=== PATIENT | female | born 1960 | race American Indian/Alaskan Native ===

== ENCOUNTER 2018-12-01 11:35 | Observation (INO) | payer MEDICARE ==
[2018-12-01] MEDS ORDERED: Iohexol 240 (50 ml) PO ONE (12:35)
--- NOTE | 2018-12-01 12:37 | ED PDOC ---
HPI: General Adult Time Seen by Provider: 12/01/18 11:52 Chief Complaint (Nursing): GI Problem Chief Complaint (Provider): GI Problem History Per: Patient History/Exam Limitations: no limitations Onset/Duration Of Symptoms: Days Current Symptoms Are (Timing): Still Present Additional Complaint(s): 57 y/o female with a PMHx of CLL, HTN, DM, Hypercholesterolemia, CAD, CABG and a Cardiac Arrest presents to the ED for evaluation of worsening diarrhea and abdominal pain, onset 9 months ago. Patient reports she was recently on oral Chemotherapy being treated for Chronic lymphocytic leukemia. However, patient reports of stopping medications in February 2018 as she it made her feel unwell. Patient further reports she also did not like the taste of the medication. Patient states she has since developed diarrhea and abdominal pain. Patient reports of increasing abdominal pain and diarrhea as well as generalized weakness, nausea, vomiting and chest tightness over the last four weeks. Patient states pain temporarily goes away when belching. Otherwise, patient denies alex rtness of breath, leg pain, recent travel, hormone medication use and taking any aspirin. PMD: [facility] Oncologist: Dr. Sepulveda Past Medical History Reviewed: Historical Data, Nursing Documentation, Vital Signs Vital Signs: Last Vital Signs Temp 97.3 F L 12/01/18 11:41 Pulse 122 H 12/01/18 11:41 Resp 19 12/01/18 11:41 BP 95/76 L 12/01/18 11:41 Pulse Ox 99 12/01/18 11:41 - Medical History PMH: CAD, Diabetes, Gastritis, HTN, Hypercholesterolemia Denies: Chronic Kidney Disease Other PMH: Chronic lymphocytic leukemia, Cardiac Arrest - Surgical History Surgical History: CABG Other surgeries: Partial Hysterectomy, Tumor Removal - Family History Family History: States: Unknown Family Hx - Home Medications Home Medications: Ambulatory Orders Medication Instructions Recorded Omeprazole Magnesium [Prilosec Otc] 20 mg PO DAILY 01/09/15 Aspirin [Ecotrin] 81 mg PO DAILY #0 tabec 01/14/15 Atorvastatin [Lipitor] 20 mg PO HS #0 tab 01/14/15 Enalapril Maleate [Vasotec] 5 mg PO DAILY #0 tab 01/14/15 Insulin Aspart/Insulin Aspar 25 units SC BID #0 unit 01/14/15 [Novolog Mix 70/30 (70/30 units/ml)] Metoprolol Tartrate [Lopressor] 25 mg PO Q12 #0 tab 01/14/15 levETIRAcetam [Keppra] 500 mg PO BID #0 tab 01/14/15 Sennosides [Senokot] 8.6 mg PO DAILY 07/13/16 - Allergies Allergies/Adverse Reactions: Allergies Allergy/AdvReac Type Severity Reaction Status Date / Time No Known Allergies Allergy Verified 07/12/16 18:09 Review of Systems ROS Statement: Except As Marked, All Systems Reviewed And Found Negative Constitutional: Positive for: Weakness Cardiovascular: Positive for: Chest Pain (tightness ) Respiratory: Negative for: Shortness of Breath Gastrointestinal: Positive for: Nausea, Vomiting, Abdominal Pain, Diarrhea Musculoskeletal: Negative for: Leg Pain Physical Exam - Reviewed Nursing Documentation Reviewed: Yes Vital Signs Reviewed: Yes - Physical Exam Appears: Positive for: No Acute Distress Head Exam: Positive for: ATRAUMATIC, NORMOCEPHALIC Skin: Positive for: Normal Color, Warm, Dry Eye Exam: Positive for: Normal appearance, EOMI, PERRL Neck: Positive for: Normal, Painless ROM, Supple Cardiovascular/Chest: Positive for: Regular Rate, Rhythm. Negative for: Murmur Respiratory: Positive for: Normal Breath Sounds. Negative for: Respiratory Distress Gastrointestinal/Abdominal: Positive for: Normal Exam, Soft. Negative for: Tenderness Back: Positive for: Normal Inspection. Negative for: L CVA Tenderness, R CVA Tenderness, Vertebral Tenderness Extremity: Positive for: Normal ROM. Negative for: Pedal Edema, Deformity Neurologic/Psych: Positive for: Alert, Oriented. Negative for: Motor/Sensory Deficits - Laboratory Results Result Diagrams: 12/01/18 13:40 12/01/18 13:40 Lab Results: 58.2 wbc - ECG ECG: Positive for: Interpreted By Me, Viewed By Me ECG Rhythm: Positive for: Normal QRS, Sinus Rhythm, Nonspecific Changes O2 Sat by Pulse Oximetry: 99 (RA) Pulse Ox Interpretation: Normal - Progress ED Course And Treament: 1754: Stable. AAOx3. Pain free. Spoke with Xu for Dr. Watson. Will admit tele obs for further eval. Pt. stopped chemo, likely causing wbc increase. Medical Decision Making Medical Decision Making: Time: 1236 Plan: -- VBG -- CT Abd/Pelvis PO & IV Contrast -- EKG -- CMP -- Lipase -- Magnesium -- Phosphorus -- Troponin I -- ED Urine Dipstick -- CBC with Differentials -- PTT -- Prothrombin Time -- CXR Portable -- Aspirin 325 mg PO -- Bentyl 10 mg PO -- Sodium Chloride 0.9% IV 150 mls/hr -- Iohexol 50 ml PO -- Zofran Inj 4 mg IV -- Blood Culture -- Urine Culture -- Occasional Babysitter -- Vital signs Q15M -- Urinalysis Scribe Attestation: Documented by Abelino Rhoades, acting as a scribe for Dontae Loyd MD. Provider Scribe Attestation: All medical record entries made by the Scribe were at my direction and personally dictated by me. I have reviewed the chart and agree that the record accurately reflects my personal performance of the history, physical exam, medical decision making, and the department course for this patient. I have also personally directed, reviewed, and agree with the discharge instructions and disposition. Disposition - Clinical Impression Clinical Impression: Abdominal pain, Chest pain, Leukocytosis, CLL (chronic lymphocytic leukemia) - Patient ED Disposition Is Patient to be Admitted: Yes Counseled Patient/Family Regarding: Studies Performed, Diagnosis - Disposition Disposition Time: 17:55 Condition: FAIR - Pt Status Changed To: Hospital Disposition Of: Observation - POA Present On Arrival: None
[2018-12-01] MEDS ORDERED: Sodium Chloride 0.9% 1,000 ML IV ONE (12:45)
[2018-12-01 13:48] LABS: VENOUS BLOOD GAS BASE EXCESS -8.9 mmol/L (0.0-2.0); VENOUS BLOOD GAS PCO2 35 mmHg (40-60); VENOUS BLOOD GAS PO2 48 mm/Hg (30-55); VENOUS BLOOD PH 7.29 (7.32-7.43)
[2018-12-01] MEDS ORDERED: Iohexol 240 (50 ml) ONE (13:51)
[2018-12-01 13:55] LABS: BASO # 0.6 K/uL (0.0-0.2); EOS # 0.2 K/uL (0.0-0.7); EOS % 0.3 % (0.0-4.0); HEMOGLOBIN 10.4 g/dL (12.0-16.0); LYMPH # 45.8 K/uL (1.0-4.3); LYMPH % 78.7 % (20.0-40.0); MEAN CELL VOLUME 66.4 fl (81.0-99.0); MEAN CORPUSCULAR HEMOGLOBIN 19.2 pg (27.0-31.0); MEAN CORPUSCULAR HGB CONC 28.8 g/dL (33.0-37.0); MEAN PLATELET VOLUME 8.5 fl (7.2-11.7); MONO # 0.9 K/uL (0.0-0.8); MONO % 1.5 % (0.0-10.0); NEUT # 10.8 K/uL (1.8-7.0); NEUT % 18.5 % (50.0-75.0); NRBC % 0.3 % (0.0-0.0); PLATELET COUNT 465 K/uL (130-400); RBC 5.43 Mil/uL (3.80-5.20); RED CELL DISTRIBUTION WIDTH 19.6 % (11.5-14.5)
[2018-12-01 14:10] LABS: ALB/GLOB RATIO 1.3 (1.0-2.1); ALBUMIN 4.4 g/dL (3.5-5.0); ALT/SGPT 24 U/L (9-52); AST/SGOT 22 U/L (14-36); BLOOD UREA NITROGEN 15 mg/dl (7-17); CALCIUM 9.1 mg/dL (8.4-10.2); GFR NON-AFRICAN AMERICAN 42; LIPASE 109 U/L (23-300)
[2018-12-01 14:12] LABS: INR 1.1; PROTHROMBIN TIME 12.5 Seconds (9.8-13.1)
[2018-12-01 14:28] LABS: WHITE BLOOD COUNT 58.2 K/uL (4.8-10.8)
[2018-12-01 14:47] LABS: BANDS 1 % (0-2); LYMPHOCYTE 75 % (20-50); MONOCYTE 1 % (0-10); NEUTROPHIL 17 % (42-75); PLATELET ESTIMATE INCREASED (NORMAL); REACTIVE LYMPHOCYTES 6 % (0-0); TOTAL CELLS COUNTED 100
[2018-12-01 14:48] LABS: ANISOCYTOSIS SLIGHT; HYPOCHROMIC SLIGHT; MICROCYTOSIS MODERATE
[2018-12-01 14:49] LABS: BURR CELLS SLIGHT; OVALOCYTES SLIGHT; SCHISTOCYTES SLIGHT; TEARDROP CELLS SLIGHT
--- NOTE | 2018-12-01 14:59 | RAD ---
Date of service: 12/01/2018 HISTORY: dyspnea COMPARISON: Comparison chest 07/12/2016. FINDINGS: LUNGS: Poor inspiration with low lung volumes, crowded bronchovascular markings and mild bibasilar atelectasis.. PLEURA: No significant pleural effusion identified, no pneumothorax apparent. CARDIOVASCULAR: No discernible aortic atherosclerotic calcification present. Heart size upper limits of normal.. Sternotomy wires and CABG clips. OSSEOUS STRUCTURES: No significant abnormalities. VISUALIZED UPPER ABDOMEN: Normal. OTHER FINDINGS: None. IMPRESSION: Poor inspiration with low lung volumes, crowded bronchovascular markings and mild bibasilar atelectasis..
[2018-12-01] MEDS ORDERED: Sodium Chloride 0.9% 50 ML IV ONE (16:26)
[2018-12-01] MEDS ORDERED: Iodixanol 320 MG/ML 100 ML BOTTLE IV ONE (16:26)
[2018-12-01 16:41] LABS: SQUAMOUS EPITHIAL 2 /hpf (0-5); URINE AMORPHOUS SEDIMENT RARE /ul (<OCC); URINE BACTERIA OCC (<OCC); URINE BILIRUBIN NEGATIVE (NEGATIVE); URINE BLOOD NEGATIVE (NEGATIVE); URINE CLARITY SLIGHTY-CLOUDY (Clear); URINE COLOR YELLOW (YELLOW); URINE GLUCOSE (UA) NEG (NEGATIVE); URINE LEUKOCYTE ESTERASE NEG Leu/uL (Negative); URINE PROTEIN 30 mg/dL (NEGATIVE); URINE UROBILINOGEN 0.2-1.0 mg/dL (0.2-1.0)
--- NOTE | 2018-12-01 17:48 | CT ---
Date of service: 12/01/2018 PROCEDURE: CT Abdomen and pelvis.. HISTORY: Abdominal pain COMPARISON: Correlation made with prior abdominal ultrasound 01/10/[address] scan abdomen pelvis dated 05/24/2014. TECHNIQUE: Contiguous axial images of the abdomen and pelvis performed following intravenous injection of approximately 95 cc Visipaque 320 contrast material. Additional 2D sagittal and coronal R reformats s generated. Radiation dose: Total exam DLP = 914.21 mGy-cm. This CT exam was performed using one or more of the following dose reduction techniques: Automated exposure control, adjustment of the mA and/or kV according to patient size, and/or use of iterative reconstruction technique. FINDINGS: LOWER THORAX: Heart exhibits normal size. No significant pericardial effusion. Tiny hiatal hernia. There appears to be some minor linear scarring in the left lingular region. LIVER: Liver is enlarged measuring over 20 cm in CC dimension.. No obvious hepatic masses collections or calcifications. Portal and splenic veins opacified. GALLBLADDER AND BILE DUCTS: Gallbladder is physiologically distended. No evidence of intraluminal gallbladder calculi. PANCREAS: Pancreas appears slightly atrophic and fatty replaced. No obvious pancreatic masses collections or calcifications.. SPLEEN: Spleen exhibits normal size and attenuation pattern without masses collections or calcifications. ADRENALS: Questionable tiny left adrenal myelolipoma. KIDNEYS AND URETERS: Kidneys exhibit symmetric nephrograms. No evidence of nephrolithiasis or hydronephrosis.. BLADDER: Urinary bladder is incompletely distended which in part accounts for thick-walled appearance however correlation with urinalysis recommended to exclude cystitis. REPRODUCTIVE: Hysterectomy.. APPENDIX: The appendix is fluid filled though otherwise unremarkable no evidence to suggest acute appendicitis BOWEL: Evaluation of the bowel is limited due to incomplete opacification. The stomach is distended with oral contrast material and air. Visualized loops of small bowel exhibit normal contour and caliber. No evidence of acute mechanical small bowel obstruction. Moderate amount of fluid seen throughout the large bowel suggesting diarrheal illness however clinical correlation with history recommended. PERITONEUM: Unremarkable. No fluid collection. No free air. LYMPH NODES: Redemonstrated are multiple small to enlarged aortic- retroperitoneal lymph nodes. Additionally, there are few retroperitoneal lymph nodes and extend to the aortic bifurcation and common iliac regions. External iliac and inguinal lymph nodes are present. Rule out inflammatory or neoplastic process including hematological abnormality including lymphoma- leukemia.. VASCULATURE: Unremarkable. No aortic aneurysm. Mild aortic atherosclerotic calcification or mural plaque present. BONES: Multilevel degenerative spondylosis of the thoracic and lumbar spine. OTHER FINDINGS: None. IMPRESSION: Hepatomegaly. Findings consistent with a diarrheal illness. There are multiple small to mildly enlarged retroperitoneal and pelvic; rule out inflammatory and/or neoplastic process including hematologic abnormality including lymphoma/leukemia. The urinary bladder wall thickening likely due to incomplete distention however correlation with urinalysis to exclude cystitis. Tiny left adrenal myelolipoma
[2018-12-01] MEDS ORDERED: Dextrose 50% SYRINGE Inj (50 ml) IV PRN (18:10)
[2018-12-01] MEDS ORDERED: Glucagon Recombinant 1 mg Inj IM PRN (18:10)
--- NOTE | 2018-12-01 19:09 | CP.PCM.CON ---
History of Present Illness - History of Present Illness History of Present Illness: I was asked to evaluate patient by Dr Watson and Xu Alonso APN Patient seen 12/01/18 657 Patient is a 57 year old female with CAD s/p CABG, HTN, hyperchoelsterolemia, CLL who presents with 4 week history of diarrhea. She attributed her symptoms to an oral; chemo medication. Her diarrhea did not improve, and therefore she presented to the ER. She had associated chest discomfort which improved after passing gas. She is currently in the ER. She is chest pain free. Review of Systems - Constitutional Constitutional: absent: As Per HPI, Anorexia, Chills, Daytime Sleepiness, Excessive Sweating, Fatigue, Fever, Frequent Falls, Headache, Increased Appetite, Lethargy, Malaise, Night Sweats, Snoring, Sleep Apnea, Weight Gain, Weight Loss, Weakness, Other - EENT Eyes: absent: As Per HPI, Blind Spots, Blurred Vision, Change in Vision, Decreased Night Vision, Diplopia, Discharge, Dry Eye, Exophthalmos, Floaters, Irritation, Itchy Eyes, Loss of Peripheral Vision, Pain, Photophobia, Requires Corrective Lenses, Sees Flashes, Spots in Vision, Tunnel Vision, Other Visual Disturbances, Loss of Vision, Other Ears: absent: As Per HPI, Decreased Hearing, Ear Discharge, Ear Pain, Tinnitus, Abnormal Hearing, Disequilibrium, Dizziness, Other Nose/Mouth/Throat: absent: As Per HPI, Epistaxis, Nasal Congestion, Nasal Discharge, Nasal Obstruction, Nasal Trauma, Nose Pain, Post Nasal Drip, Sinus Pain, Sinus Pressure, Bleeding Gums, Change in Voice, Dental Pain, Dry Mouth, Dysphagia, Halitosis, Hoarsness, Lip Swelling, Mouth Lesions, Mouth Pain, Odynophagia, Sore Throat, Throat Swelling, Tongue Swelling, Facial Pain, Neck Pain, Neck Mass, Other - Breasts Breasts: absent: As Per HPI, Change in Shape, Mass, Pain, Nipple Discharge, Nipple Inversion, Skin Changes, Swelling, Other - Cardiovascular Cardiovascular: Chest Pain - Respiratory Respiratory: absent: As Per HPI, Cough, Dyspnea, Hemoptysis, Dyspnea on Exertion, Wheezing, Snoring, Stridor, Pain on Inspiration, Chest Congestion, Excessive Mucous Production, Change in Mucous Color, Pain with Coughing, Other - Gastrointestinal Gastrointestinal: Belching, Bloating, Diarrhea, Excessive Flatus - Genitourinary Genitourinary: absent: As Per HPI, Change in Urinary Stream, Difficulty Urinating, Dysuria, Flank Pain, Hematuria, Pyuria, Nocturia, Urinary Incontinence, Urinary Frequency, Urinary Hesitance, Urinary Urgency, Voiding Freq/Small Amts, Freq UTI, Hx Renal/Bladder Calculi, Hx /Renal Surgery, Bladder Distension, Other - Musculoskeletal Musculoskeletal: absent: As Per HPI, Abnormal Gait, Arthralgias, Atrophy, Back Pain, Deformity, Joint Swelling, Limited Range of Motion, Loss of Height, Muscle Cramps, Muscle Weakness, Myalgias, Neck Pain, Numbness, Radiating Pain into Limb, Stiffness, Tingling, Other - Integumentary Integumentary: absent: As Per HPI, Acne, Alopecia, Bleeding Lesions, Change in Hair, Change in Nails, Change in Pigmentation, Changing Lesions, Dry Skin, Erythema, Furuncle, Hirsutism, Lesions, New Lesions, Non-Healing Lesions, Photosensitivity, Pruritus, Rash, Skin Pain, Skin Ulcer, Sores, Striae, Swelling, Unusual Bruising, Wounds, Jaundice, Other - Neurological Neurological: absent: As Per HPI, Abnormal Gait, Abnormal Hearing, Abnormal Movements, Abnormal Speech, Behavioral Changes, Burning Sensations, Confusion, Convulsions, Disequilibrium, Dizziness, Numbness, Focal Weakness, Frequent Falls, Headaches, Lack of Coordination, Loss of Vision, Memory Loss, Paresthesias, Radicular Pain, Restless Legs, Sensory Deficit, Syncope, Tingling, Tremor, Vertigo, Weakness, Other Visual Disturbances, Other - Psychiatric Psychiatric: absent: As Per HPI, Abnormal Sleep Pattern, Anhedonia, Anxiety, Auditory Hallucinations, Behavioral Changes, Change in Appetite, Change in Libido, Confusion, Depression, Difficulty Concentrating, Hallucinations, Homicidal Ideation, Hopelessness, Irritability, Memory Loss, Mood Swings, Panic Attacks, Paranoia, Suicidal Ideation, Visual Hallucinations, Tactile Hallucinations, Other - Endocrine Endocrine: absent: As Per HPI, Change in Body Appearance, Change in Libido, Cold Intolorance, Deepening of Voice, Excessive Sweating, Fatigue, Flushing, Heat Intolorance, Increase in Ring/Shoe/Hat Size, Palpitations, Polydipsia, Polyphagia, Polyuria, Other - Hematologic/Lymphatic Hematologic: absent: As Per HPI, Easy Bleeding, Easy Bruising, Lymphadenopathy, Other Past Patient History - Past Medical History & Family History Past Medical History?: Yes - Past Social History Smoking Status: Former Smoker - CARDIAC Hx Hypercholesterolemia: Yes Hx Hypertension: Yes - PULMONARY Hx Respiratory Disorders: No - NEUROLOGICAL Hx Neurological Disorder: No - HEENT Other/Comment: Retinal detachment - underwent surgery 2014 - RENAL Hx Chronic Kidney Disease: No - ENDOCRINE/METABOLIC Hx Endocrine Disorders: Yes Hx Diabetes Mellitus Type 2: Yes - HEMATOLOGICAL/ONCOLOGICAL Hx Blood Disorders: Yes (Leukemia CLL) - INTEGUMENTARY Hx Dermatological Problems: No - MUSCULOSKELETAL/RHEUMATOLOGICAL Hx Falls: No - GASTROINTESTINAL Hx Gastritis: Yes - GENITOURINARY/GYNECOLOGICAL Hx Genitourinary Disorders: No - PSYCHIATRIC Hx Psychophysiologic Disorder: No Hx Substance Use: No - SURGICAL HISTORY Hx Coronary Artery Bypass Graft: Yes - ANESTHESIA Hx Anesthesia: Yes Hx Anesthesia Reactions: No Meds Allergies/Adverse Reactions: Allergies Allergy/AdvReac Type Severity Reaction Status Date / Time No Known Allergies Allergy Verified 07/12/16 18:09 - Medications Medications: Current Medications Dextrose (Dextrose 50% Inj) 0 ml IV STAT PRN; Protocol PRN Reason: Hypoglycemia Protocol Dextrose (Glutose 15) 0 gm PO ONCE PRN; Protocol PRN Reason: Hypoglycemia Protocol Glucagon (Glucagen Diagnostic Kit) 0 mg IM STAT PRN; Protocol PRN Reason: Hypoglycemia Protocol Sodium Chloride (Sodium Chloride 0.9%) 1,000 mls @ 150 mls/hr IV .[id number] ONE Stop: 12/01/18 19:24 Last Admin: 12/01/18 13:55 Dose: 150 mls/hr Insulin Human Regular (Humulin R) 0 units SC ACHS [facility]; Protocol Physical Exam - Constitutional Appears: Non-toxic - Head Exam Head Exam: NORMAL INSPECTION - Eye Exam Eye Exam: Normal appearance - ENT Exam ENT Exam: Mucous Membranes Moist - Neck Exam Neck exam: Positive for: Full Rom - Respiratory Exam Respiratory Exam: NORMAL BREATHING PATTERN - Cardiovascular Exam Cardiovascular Exam: REGULAR RHYTHM - GI/Abdominal Exam GI & Abdominal Exam: Normal Bowel Sounds - Rectal Exam Rectal Exam: Deferred - Extremities Exam Extremities exam: Negative for: pedal edema - Back Exam Back exam: NORMAL INSPECTION - Neurological Exam Neurological exam: Alert, Oriented x3 - Psychiatric Exam Psychiatric exam: Normal Affect - Skin Skin Exam: Normal Color Results - Vital Signs Recent Vital Signs: Last Vital Signs Temp 97.4 F L 12/01/18 15:58 Pulse 102 H 12/01/18 18:25 Resp 18 12/01/18 18:25 BP 156/77 H 12/01/18 18:25 Pulse Ox 100 12/01/18 18:25 - Labs Result Diagrams: 12/01/18 13:40 12/01/18 13:40 Labs: Laboratory Results - last 24 hr 12/01/18 12/01/18 12/01/18 12:45 13:40 13:40 WBC 58.2 H* RBC 5.43 H Hgb 10.4 L Hct 36.1 MCV 66.4 L D MCH 19.2 L MCHC 28.8 L RDW 19.6 H Plt Count 465 H MPV 8.5 Neut % (Auto) 18.5 L Lymph % (Auto) 78.7 H [place] % (Auto) 1.5 Eos % (Auto) 0.3 Baso % (Auto) 1.0 Neut # (Auto) 10.8 H Lymph # (Auto) 45.8 H [place] # (Auto) 0.9 H Eos # (Auto) 0.2 Baso # (Auto) 0.6 H Neutrophils % (Manual) 17 L Band Neutrophils % 1 Lymphocytes % (Manual) 75 H Reactive Lymphs % 6 H Monocytes % (Manual) 1 Platelet Estimate Increased H Hypochromasia (manual) Slight Anisocytosis (manual) Slight Microcytosis (manual) Moderate Tear Drop Cells Slight Ovalocytes Slight Nya Cells Slight Schistocytes Slight PT INR APTT pO2 48 VBG pH 7.29 L VBG pCO2 35 L VBG HCO3 17.6 VBG Total CO2 17.9 L VBG O2 Sat (Calc) 86.0 H VBG Base Excess -8.9 L VBG Potassium 4.0 Sodium 138.0 140 Chloride 111.0 H 112 H Glucose 178 H Lactate 1.1 FiO2 21.0 Potassium 4.3 Carbon Dioxide 16 L Anion Gap 16 BUN 15 Creatinine 1.3 H Est GFR ( Amer) 51 Est GFR (Non-Af Amer) 42 POC Glucose (mg/dL) Random Glucose 175 H Calcium 9.1 Phosphorus 3.2 Magnesium 1.4 L Total Bilirubin 0.4 AST 22 ALT 24 Alkaline Phosphatase 123 Troponin I < 0.0120 Total Protein 7.9 Albumin 4.4 Globulin 3.5 Albumin/Globulin Ratio 1.3 Lipase 109 Venous Blood Potassium 4.0 Urine Color Urine Clarity Urine pH Ur Specific [place] Urine Protein Urine Glucose (UA) Urine Ketones Urine Blood Urine Nitrate Urine Bilirubin Urine Urobilinogen Ur Leukocyte Esterase Urine RBC (Auto) Urine Microscopic WBC Ur Squamous Epith Cells Amorphous Sediment Urine Bacteria Hyaline Casts 12/01/18 12/01/18 12/01/18 13:40 15:45 17:28 WBC RBC Hgb Hct MCV MCH MCHC RDW Plt Count MPV Neut % (Auto) Lymph % (Auto) [place] % (Auto) Eos % (Auto) Baso % (Auto) Neut # (Auto) Lymph # (Auto) [place] # (Auto) Eos # (Auto) Baso # (Auto) Neutrophils % (Manual) Band Neutrophils % Lymphocytes % (Manual) Reactive Lymphs % Monocytes % (Manual) Platelet Estimate Hypochromasia (manual) Anisocytosis (manual) Microcytosis (manual) Tear Drop Cells Ovalocytes Nya Cells Schistocytes PT 12.5 INR 1.1 APTT 41.0 H pO2 VBG pH VBG pCO2 VBG HCO3 VBG Total CO2 VBG O2 Sat (Calc) VBG Base Excess VBG Potassium Sodium Chloride Glucose Lactate FiO2 Potassium Carbon Dioxide Anion Gap BUN Creatinine Est GFR ( Amer) Est GFR (Non-Af Amer) POC Glucose (mg/dL) 128 H Random Glucose Calcium Phosphorus Magnesium Total Bilirubin AST ALT Alkaline Phosphatase Troponin I Total Protein Albumin Globulin Albumin/Globulin Ratio Lipase Venous Blood Potassium Urine Color Yellow Urine Clarity Slighty-cloudy Urine pH 5.0 Ur Specific [place] 1.017 Urine Protein 30 Urine Glucose (UA) Neg Urine Ketones Negative Urine Blood Negative Urine Nitrate Negative Urine Bilirubin Negative Urine Urobilinogen 0.2-1.0 Ur Leukocyte Esterase Neg Urine RBC (Auto) 1 Urine Microscopic WBC 2 Ur Squamous Epith Cells 2 Amorphous Sediment Rare H Urine Bacteria Occ H Hyaline Casts 6-10 H - EKG Data EKG Interpreted by: Myself Assessment & Plan (1) HTN (hypertension) Assessment and Plan: blood pressure control. continue meds and reassess Status: Acute (2) CAD (coronary artery disease) Assessment and Plan: s/p CABG. no acute ischemia, has previous CAD on EKG. medical therapy. Status: Acute (3) Diabetes Assessment and Plan: glucose control Status: Acute (4) Chest pain Assessment and Plan: does not appear cardiac in nature. outpatient stress test Status: Acute
--- NOTE | 2018-12-01 20:36 | CARD ---
APPROVED REPORT Date of service: 12/01/2018 EKG Measurement Heart [id number] <Conclusion> Sinus tachycardia Nonspecific T wave abnormality Abnormal ECG
[2018-12-01] MEDS: Sodium Chloride 0.9% 1,000 ML IV SCH (22:16)
[2018-12-01] MEDS: Insulin Regular 100 units/ml SC SCH (23:17)
[2018-12-02] MEDS: Sodium Chloride 0.9% 1,000 ML IV SCH (04:46)
[2018-12-02] MEDS: Insulin Regular 100 units/ml SC SCH ×2 (06:31→12:16)
[2018-12-02 06:48] LABS: BASO # 0.1 K/uL (0.0-0.2); BASO % 0.3 % (0.0-2.0); EOS # 0.4 K/uL (0.0-0.7); EOS % 0.8 % (0.0-4.0); HEMOGLOBIN 9.3 g/dL (12.0-16.0); LYMPH # 40.8 K/uL (1.0-4.3); LYMPH % 80.9 % (20.0-40.0); MEAN CELL VOLUME 65.3 fl (81.0-99.0); MEAN CORPUSCULAR HEMOGLOBIN 19.2 pg (27.0-31.0); MEAN CORPUSCULAR HGB CONC 29.4 g/dL (33.0-37.0); MEAN PLATELET VOLUME 8.5 fl (7.2-11.7); MONO # 0.9 K/uL (0.0-0.8); MONO % 1.7 % (0.0-10.0); NEUT # 8.2 K/uL (1.8-7.0); NEUT % 16.3 % (50.0-75.0); RBC 4.85 Mil/uL (3.80-5.20); RED CELL DISTRIBUTION WIDTH 19.1 % (11.5-14.5)
[2018-12-02 06:51] LABS: WHITE BLOOD COUNT 50.4 K/uL (4.8-10.8)
[2018-12-02 07:00] LABS: LDL CHOLESTEROL 71 mg/dL (0-129)
[2018-12-02 07:04] LABS: ALB/GLOB RATIO 1.1 (1.0-2.1); ALBUMIN 3.6 g/dL (3.5-5.0); ALT/SGPT 23 U/L (9-52); AST/SGOT 31 U/L (14-36); BLOOD UREA NITROGEN 11 mg/dl (7-17); CALCIUM 8.1 mg/dL (8.4-10.2); GFR NON-AFRICAN AMERICAN 51; HDL CHOLESTEROL 26 MG/DL (30-70)
--- NOTE | 2018-12-02 08:28 | CP.PCM.HP ---
History of Present Illness - History of Present Illness History of Present Illness: pt admitted for cp, abn ct abd and n/v, cll. no f/c, n/v/d at present. had has diarrhea x 3 wks. denies blood in stool all bw noted. case d/c w/ specialists. Present on Admission - Present on Admission Any Indicators Present on Admission: Yes History of Uncontrolled Diabetes: Yes Review of Systems - Cardiovascular Cardiovascular: As Per HPI, Chest Pain - Gastrointestinal Gastrointestinal: As Per HPI, Diarrhea Past Patient History - Past Medical History & Family History Past Medical History?: Yes - Past Social History Smoking Status: Never Smoked - CARDIAC Hx Cardiac Disorders: Yes Hx Hypercholesterolemia: Yes Hx Hypertension: Yes - PULMONARY Hx Respiratory Disorders: No - NEUROLOGICAL Hx Neurological Disorder: No - HEENT Hx HEENT Problems: Yes Other/Comment: Retinal detachment - underwent surgery 2014 - RENAL Hx Chronic Kidney Disease: No - ENDOCRINE/METABOLIC Hx Endocrine Disorders: Yes Hx Diabetes Mellitus Type 2: Yes - HEMATOLOGICAL/ONCOLOGICAL Hx Blood Disorders: Yes (Leukemia CLL) Hx Leukemia: Yes - INTEGUMENTARY Hx Dermatological Problems: No - MUSCULOSKELETAL/RHEUMATOLOGICAL Hx Musculoskeletal Disorders: No Hx Falls: No - GASTROINTESTINAL Hx Gastrointestinal Disorders: Yes Hx Gastritis: Yes - GENITOURINARY/GYNECOLOGICAL Hx Genitourinary Disorders: No - PSYCHIATRIC Hx Psychophysiologic Disorder: No Hx Substance Use: No - SURGICAL HISTORY Hx Surgeries: Yes Hx Coronary Artery Bypass Graft: Yes - ANESTHESIA Hx Anesthesia: Yes Hx Anesthesia Reactions: No Hx Malignant Hyperthermia: No Meds Allergies/Adverse Reactions: Allergies Allergy/AdvReac Type Severity Reaction Status Date / Time No Known Allergies Allergy Verified 07/12/16 18:09 Physical Exam - Constitutional Appears: Well, Non-toxic, No Acute Distress - Head Exam Head Exam: ATRAUMATIC, NORMAL INSPECTION, NORMOCEPHALIC - Eye Exam Eye Exam: EOMI, Normal appearance, PERRL Pupil Exam: NORMAL ACCOMODATION, PERRL - ENT Exam ENT Exam: Mucous Membranes Moist, Normal Exam - Neck Exam Neck exam: Positive for: Normal Inspection - Respiratory Exam Respiratory Exam: Clear to Auscultation Bilateral, NORMAL BREATHING PATTERN - Cardiovascular Exam Cardiovascular Exam: REGULAR RHYTHM, RRR, +S1, +S2 - GI/Abdominal Exam GI & Abdominal Exam: Normal Bowel Sounds, Soft. absent: Tenderness - Extremities Exam Extremities exam: Positive for: full ROM, normal capillary refill, normal inspection, pedal pulses present - Back Exam Back exam: FULL ROM, NORMAL INSPECTION - Neurological Exam Neurological exam: Alert, CN II-XII Intact, Normal Gait, Oriented x3, Reflexes Normal - Psychiatric Exam Psychiatric exam: Normal Affect, Normal Mood - Skin Skin Exam: Dry, Intact, Normal Color, Warm Results - Vital Signs Recent Vital Signs: Last Vital Signs Temp 97.7 F 12/02/18 07:53 Pulse 92 H 12/02/18 07:53 Resp 20 12/02/18 07:53 BP 139/79 12/02/18 07:53 Pulse Ox 99 12/02/18 07:53 - Labs Result Diagrams: 12/02/18 05:40 12/02/18 05:40 Labs: Laboratory Results - last 24 hr 12/01/18 12/01/18 12/01/18 12:45 13:40 13:40 WBC 58.2 H* RBC 5.43 H Hgb 10.4 L Hct 36.1 MCV 66.4 L D MCH 19.2 L MCHC 28.8 L RDW 19.6 H Plt Count 465 H MPV 8.5 Neut % (Auto) 18.5 L Lymph % (Auto) 78.7 H [place] % (Auto) 1.5 Eos % (Auto) 0.3 Baso % (Auto) 1.0 Neut # (Auto) 10.8 H Lymph # (Auto) 45.8 H [place] # (Auto) 0.9 H Eos # (Auto) 0.2 Baso # (Auto) 0.6 H Neutrophils % (Manual) 17 L Band Neutrophils % 1 Lymphocytes % (Manual) 75 H Reactive Lymphs % 6 H Monocytes % (Manual) 1 Platelet Estimate Increased H Hypochromasia (manual) Slight Anisocytosis (manual) Slight Microcytosis (manual) Moderate Tear Drop Cells Slight Ovalocytes Slight [place] Cells Slight Schistocytes Slight PT INR APTT pO2 48 VBG pH 7.29 L VBG pCO2 35 L VBG HCO3 17.6 VBG Total CO2 17.9 L VBG O2 Sat (Calc) 86.0 H VBG Base Excess -8.9 L VBG Potassium 4.0 Sodium 138.0 140 Chloride 111.0 H 112 H Glucose 178 H Lactate 1.1 FiO2 21.0 Potassium 4.3 Carbon Dioxide 16 L Anion Gap 16 BUN 15 Creatinine 1.3 H Est GFR ( Amer) 51 Est GFR (Non-Af Amer) 42 POC Glucose (mg/dL) Random Glucose 175 H Calcium 9.1 Phosphorus 3.2 Magnesium 1.4 L Total Bilirubin 0.4 AST 22 ALT 24 Alkaline Phosphatase 123 Troponin I < 0.0120 Total Protein 7.9 Albumin 4.4 Globulin 3.5 Albumin/Globulin Ratio 1.3 Triglycerides Cholesterol LDL Cholesterol Direct HDL Cholesterol Lipase 109 Venous Blood Potassium 4.0 Urine Color Urine Clarity Urine pH Ur Specific [place] Urine Protein Urine Glucose (UA) Urine Ketones Urine Blood Urine Nitrate Urine Bilirubin Urine Urobilinogen Ur Leukocyte Esterase Urine RBC (Auto) Urine Microscopic WBC Ur Squamous Epith Cells Amorphous Sediment Urine Bacteria Hyaline Casts 12/01/18 12/01/18 12/01/18 13:40 15:45 17:28 WBC RBC Hgb Hct MCV MCH MCHC RDW Plt Count MPV Neut % (Auto) Lymph % (Auto) [place] % (Auto) Eos % (Auto) Baso % (Auto) Neut # (Auto) Lymph # (Auto) [place] # (Auto) Eos # (Auto) Baso # (Auto) Neutrophils % (Manual) Band Neutrophils % Lymphocytes % (Manual) Reactive Lymphs % Monocytes % (Manual) Platelet Estimate Hypochromasia (manual) Anisocytosis (manual) Microcytosis (manual) Tear Drop Cells Ovalocytes Nya Cells Schistocytes PT 12.5 INR 1.1 APTT 41.0 H pO2 VBG pH VBG pCO2 VBG HCO3 VBG Total CO2 VBG O2 Sat (Calc) VBG Base Excess VBG Potassium Sodium Chloride Glucose Lactate FiO2 Potassium Carbon Dioxide Anion Gap BUN Creatinine Est GFR ( Amer) Est GFR (Non-Af Amer) POC Glucose (mg/dL) 128 H Random Glucose Calcium Phosphorus Magnesium Total Bilirubin AST ALT Alkaline Phosphatase Troponin I Total Protein Albumin Globulin Albumin/Globulin Ratio Triglycerides Cholesterol LDL Cholesterol Direct HDL Cholesterol Lipase Venous Blood Potassium Urine Color Yellow Urine Clarity Slighty-cloudy Urine pH 5.0 Ur Specific [place] 1.017 Urine Protein 30 Urine Glucose (UA) Neg Urine Ketones Negative Urine Blood Negative Urine Nitrate Negative Urine Bilirubin Negative Urine Urobilinogen 0.2-1.0 Ur Leukocyte Esterase Neg Urine RBC (Auto) 1 Urine Microscopic WBC 2 Ur Squamous Epith Cells 2 Amorphous Sediment Rare H Urine Bacteria Occ H Hyaline Casts 6-10 H 12/01/18 12/01/18 12/02/18 19:40 21:44 05:24 WBC RBC Hgb Hct MCV MCH MCHC RDW Plt Count MPV Neut % (Auto) Lymph % (Auto) [place] % (Auto) Eos % (Auto) Baso % (Auto) Neut # (Auto) Lymph # (Auto) [place] # (Auto) Eos # (Auto) Baso # (Auto) Neutrophils % (Manual) Band Neutrophils % Lymphocytes % (Manual) Reactive Lymphs % Monocytes % (Manual) Platelet Estimate Hypochromasia (manual) Anisocytosis (manual) Microcytosis (manual) Tear Drop Cells Ovalocytes Nya Cells Schistocytes PT INR APTT pO2 VBG pH VBG pCO2 VBG HCO3 VBG Total CO2 VBG O2 Sat (Calc) VBG Base Excess VBG Potassium Sodium Chloride Glucose Lactate FiO2 Potassium Carbon Dioxide Anion Gap BUN Creatinine Est GFR ( Amer) Est GFR (Non-Af Amer) POC Glucose (mg/dL) 131 H 124 H Random Glucose Calcium Phosphorus Magnesium Total Bilirubin AST ALT Alkaline Phosphatase Troponin I < 0.0120 Total Protein Albumin Globulin Albumin/Globulin Ratio Triglycerides Cholesterol LDL Cholesterol Direct HDL Cholesterol Lipase Venous Blood Potassium Urine Color Urine Clarity Urine pH Ur Specific [place] Urine Protein Urine Glucose (UA) Urine Ketones Urine Blood Urine Nitrate Urine Bilirubin Urine Urobilinogen Ur Leukocyte Esterase Urine RBC (Auto) Urine Microscopic WBC Ur Squamous Epith Cells Amorphous Sediment Urine Bacteria Hyaline Casts 12/02/18 12/02/18 05:40 05:40 WBC 50.4 H* RBC 4.85 Hgb 9.3 L Hct 31.7 L MCV 65.3 L MCH 19.2 L MCHC 29.4 L RDW 19.1 H Plt Count 389 MPV 8.5 Neut % (Auto) 16.3 L Lymph % (Auto) 80.9 H [place] % (Auto) 1.7 Eos % (Auto) 0.8 Baso % (Auto) 0.3 Neut # (Auto) 8.2 H Lymph # (Auto) 40.8 H [place] # (Auto) 0.9 H Eos # (Auto) 0.4 Baso # (Auto) 0.1 Neutrophils % (Manual) Band Neutrophils % Lymphocytes % (Manual) Reactive Lymphs % Monocytes % (Manual) Platelet Estimate Hypochromasia (manual) Anisocytosis (manual) Microcytosis (manual) Tear Drop Cells Ovalocytes Nya Cells Schistocytes PT INR APTT pO2 VBG pH VBG pCO2 VBG HCO3 VBG Total CO2 VBG O2 Sat (Calc) VBG Base Excess VBG Potassium Sodium 139 Chloride 114 H Glucose Lactate FiO2 Potassium 3.6 Carbon Dioxide 16 L Anion Gap 13 BUN 11 Creatinine 1.1 Est GFR ( Amer) > 60 Est GFR (Non-Af Amer) 51 POC Glucose (mg/dL) Random Glucose 120 H Calcium 8.1 L Phosphorus 3.0 Magnesium 1.3 L Total Bilirubin 0.3 AST 31 ALT 23 Alkaline Phosphatase 107 Troponin I < 0.0120 Total Protein 6.7 Albumin 3.6 Globulin 3.1 Albumin/Globulin Ratio 1.1 Triglycerides 153 H D Cholesterol 119 LDL Cholesterol Direct 71 HDL Cholesterol 26 L Lipase Venous Blood Potassium Urine Color Urine Clarity Urine pH Ur Specific [place] Urine Protein Urine Glucose (UA) Urine Ketones Urine Blood Urine Nitrate Urine Bilirubin Urine Urobilinogen Ur Leukocyte Esterase Urine RBC (Auto) Urine Microscopic WBC Ur Squamous Epith Cells Amorphous Sediment Urine Bacteria Hyaline Casts Assessment & Plan (1) DVT prophylaxis Assessment and Plan: scd and ae hose ambulation Status: Acute (2) Abdominal mass Assessment and Plan: heme/onc outpt gi/colonoscopy Status: Acute (3) CAD (coronary artery disease) Assessment and Plan: cardio trops negative asa Status: Acute (4) Chest pain Assessment and Plan: resolved ?? r/t chornic diarrhea, cll Status: Acute (5) Chronic lymphocytic leukemia Assessment and Plan: heme/onc Status: Acute (6) Hyperglycemia due to type 2 diabetes mellitus Assessment and Plan: riss, home meds, fsbg, diet control Status: Acute Decision To Admit - Pt Status Changed To: Hospital Disposition Of: Observation - . Bed Request Type: Telemetry Admitting Physician: Edna Watson
--- NOTE | 2018-12-02 11:11 | CP.PCM.CON ---
Past Patient History - Past Medical History & Family History Past Medical History?: Yes - Past Social History Smoking Status: Never Smoked - CARDIAC Hx Cardiac Disorders: Yes Hx Hypercholesterolemia: Yes Hx Hypertension: Yes - PULMONARY Hx Respiratory Disorders: No - NEUROLOGICAL Hx Neurological Disorder: No - HEENT Hx HEENT Problems: Yes Other/Comment: Retinal detachment - underwent surgery 2014 - RENAL Hx Chronic Kidney Disease: No - ENDOCRINE/METABOLIC Hx Endocrine Disorders: Yes Hx Diabetes Mellitus Type 2: Yes - HEMATOLOGICAL/ONCOLOGICAL Hx Blood Disorders: Yes (Leukemia CLL) Hx Leukemia: Yes - INTEGUMENTARY Hx Dermatological Problems: No - MUSCULOSKELETAL/RHEUMATOLOGICAL Hx Musculoskeletal Disorders: No Hx Falls: No - GASTROINTESTINAL Hx Gastrointestinal Disorders: Yes Hx Gastritis: Yes - GENITOURINARY/GYNECOLOGICAL Hx Genitourinary Disorders: No - PSYCHIATRIC Hx Psychophysiologic Disorder: No Hx Substance Use: No - SURGICAL HISTORY Hx Surgeries: Yes Hx Coronary Artery Bypass Graft: Yes - ANESTHESIA Hx Anesthesia: Yes Hx Anesthesia Reactions: No Hx Malignant Hyperthermia: No Meds Allergies/Adverse Reactions: Allergies Allergy/AdvReac Type Severity Reaction Status Date / Time No Known Allergies Allergy Verified 07/12/16 18:09 - Medications Medications: Current Medications Aspirin (Ecotrin) 81 mg PO DAILY [facility] Last Admin: 12/02/18 10:40 Dose: 81 mg Atorvastatin Calcium (Lipitor) 40 mg PO [facility] Dextrose (Dextrose 50% Inj) 0 ml IV STAT PRN; Protocol PRN Reason: Hypoglycemia Protocol Dextrose (Glutose 15) 0 gm PO ONCE PRN; Protocol PRN Reason: Hypoglycemia Protocol Glucagon (Glucagen Diagnostic Kit) 0 mg IM STAT PRN; Protocol PRN Reason: Hypoglycemia Protocol Sodium Chloride (Sodium Chloride 0.9%) 1,000 mls @ 100 mls/hr IV .Q10H [facility] Stop: 12/02/18 19:07 Last Admin: 12/02/18 04:46 Dose: 100 mls/hr Insulin Human Lispro (Humalog) 10 units SC TID [facility] Insulin Human Regular (Humulin R) 0 units SC ACHS [facility]; Protocol Last Admin: 12/02/18 06:31 Dose: Not Given Levetiracetam (Keppra) 500 mg PO DAILY [facility] Last Admin: 12/02/18 10:44 Dose: Not Given Metformin HCl (Glucophage) 1,000 mg PO BID [facility] Last Admin: 12/02/18 10:43 Dose: 1,000 mg Metoprolol Tartrate (Lopressor) 25 mg PO Q12 [facility] Last Admin: 12/02/18 10:40 Dose: 25 mg Results - Vital Signs Recent Vital Signs: Last Vital Signs Temp 97.7 F 12/02/18 07:53 Pulse 92 H 12/02/18 10:40 Resp 20 12/02/18 07:53 BP 139/79 12/02/18 10:40 Pulse Ox 99 12/02/18 07:53 - Labs Result Diagrams: 12/02/18 05:40 12/02/18 05:40 Labs: Laboratory Results - last 24 hr 12/01/18 12/01/18 12/01/18 12:45 13:40 13:40 WBC 58.2 H* RBC 5.43 H Hgb 10.4 L Hct 36.1 MCV 66.4 L D MCH 19.2 L MCHC 28.8 L RDW 19.6 H Plt Count 465 H MPV 8.5 Neut % (Auto) 18.5 L Lymph % (Auto) 78.7 H [place] % (Auto) 1.5 Eos % (Auto) 0.3 Baso % (Auto) 1.0 Neut # (Auto) 10.8 H Lymph # (Auto) 45.8 H [place] # (Auto) 0.9 H Eos # (Auto) 0.2 Baso # (Auto) 0.6 H Neutrophils % (Manual) 17 L Band Neutrophils % 1 Lymphocytes % (Manual) 75 H Reactive Lymphs % 6 H Monocytes % (Manual) 1 Platelet Estimate Increased H Hypochromasia (manual) Slight Anisocytosis (manual) Slight Microcytosis (manual) Moderate Tear Drop Cells Slight Ovalocytes Slight [place] Cells Slight Schistocytes Slight PT INR APTT pO2 48 VBG pH 7.29 L VBG pCO2 35 L VBG HCO3 17.6 VBG Total CO2 17.9 L VBG O2 Sat (Calc) 86.0 H VBG Base Excess -8.9 L VBG Potassium 4.0 Sodium 138.0 140 Chloride 111.0 H 112 H Glucose 178 H Lactate 1.1 FiO2 21.0 Potassium 4.3 Carbon Dioxide 16 L Anion Gap 16 BUN 15 Creatinine 1.3 H Est GFR ( Amer) 51 Est GFR (Non-Af Amer) 42 POC Glucose (mg/dL) Random Glucose 175 H Calcium 9.1 Phosphorus 3.2 Magnesium 1.4 L Total Bilirubin 0.4 AST 22 ALT 24 Alkaline Phosphatase 123 Troponin I < 0.0120 Total Protein 7.9 Albumin 4.4 Globulin 3.5 Albumin/Globulin Ratio 1.3 Triglycerides Cholesterol LDL Cholesterol Direct HDL Cholesterol Lipase 109 Venous Blood Potassium 4.0 Urine Color Urine Clarity Urine pH Ur Specific [place] Urine Protein Urine Glucose (UA) Urine Ketones Urine Blood Urine Nitrate Urine Bilirubin Urine Urobilinogen Ur Leukocyte Esterase Urine RBC (Auto) Urine Microscopic WBC Ur Squamous Epith Cells Amorphous Sediment Urine Bacteria Hyaline Casts 12/01/18 12/01/18 12/01/18 13:40 15:45 17:28 WBC RBC Hgb Hct MCV MCH MCHC RDW Plt Count MPV Neut % (Auto) Lymph % (Auto) [place] % (Auto) Eos % (Auto) Baso % (Auto) Neut # (Auto) Lymph # (Auto) [place] # (Auto) Eos # (Auto) Baso # (Auto) Neutrophils % (Manual) Band Neutrophils % Lymphocytes % (Manual) Reactive Lymphs % Monocytes % (Manual) Platelet Estimate Hypochromasia (manual) Anisocytosis (manual) Microcytosis (manual) Tear Drop Cells Ovalocytes [place] Cells Schistocytes PT 12.5 INR 1.1 APTT 41.0 H pO2 VBG pH VBG pCO2 VBG HCO3 VBG Total CO2 VBG O2 Sat (Calc) VBG Base Excess VBG Potassium Sodium Chloride Glucose Lactate FiO2 Potassium Carbon Dioxide Anion Gap BUN Creatinine Est GFR ( Amer) Est GFR (Non-Af Amer) POC Glucose (mg/dL) 128 H Random Glucose Calcium Phosphorus Magnesium Total Bilirubin AST ALT Alkaline Phosphatase Troponin I Total Protein Albumin Globulin Albumin/Globulin Ratio Triglycerides Cholesterol LDL Cholesterol Direct HDL Cholesterol Lipase Venous Blood Potassium Urine Color Yellow Urine Clarity Slighty-cloudy Urine pH 5.0 Ur Specific [place] 1.017 Urine Protein 30 Urine Glucose (UA) Neg Urine Ketones Negative Urine Blood Negative Urine Nitrate Negative Urine Bilirubin Negative Urine Urobilinogen 0.2-1.0 Ur Leukocyte Esterase Neg Urine RBC (Auto) 1 Urine Microscopic WBC 2 Ur Squamous Epith Cells 2 Amorphous Sediment Rare H Urine Bacteria Occ H Hyaline Casts 6-10 H 12/01/18 12/01/18 12/02/18 19:40 21:44 05:24 WBC RBC Hgb Hct MCV MCH MCHC RDW Plt Count MPV Neut % (Auto) Lymph % (Auto) [place] % (Auto) Eos % (Auto) Baso % (Auto) Neut # (Auto) Lymph # (Auto) [place] # (Auto) Eos # (Auto) Baso # (Auto) Neutrophils % (Manual) Band Neutrophils % Lymphocytes % (Manual) Reactive Lymphs % Monocytes % (Manual) Platelet Estimate Hypochromasia (manual) Anisocytosis (manual) Microcytosis (manual) Tear Drop Cells Ovalocytes Nya Cells Schistocytes PT INR APTT pO2 VBG pH VBG pCO2 VBG HCO3 VBG Total CO2 VBG O2 Sat (Calc) VBG Base Excess VBG Potassium Sodium Chloride Glucose Lactate FiO2 Potassium Carbon Dioxide Anion Gap BUN Creatinine Est GFR ( Amer) Est GFR (Non-Af Amer) POC Glucose (mg/dL) 131 H 124 H Random Glucose Calcium Phosphorus Magnesium Total Bilirubin AST ALT Alkaline Phosphatase Troponin I < 0.0120 Total Protein Albumin Globulin Albumin/Globulin Ratio Triglycerides Cholesterol LDL Cholesterol Direct HDL Cholesterol Lipase Venous Blood Potassium Urine Color Urine Clarity Urine pH Ur Specific [place] Urine Protein Urine Glucose (UA) Urine Ketones Urine Blood Urine Nitrate Urine Bilirubin Urine Urobilinogen Ur Leukocyte Esterase Urine RBC (Auto) Urine Microscopic WBC Ur Squamous Epith Cells Amorphous Sediment Urine Bacteria Hyaline Casts 12/02/18 12/02/18 12/02/18 05:40 05:40 11:01 WBC 50.4 H* RBC 4.85 Hgb 9.3 L Hct 31.7 L MCV 65.3 L MCH 19.2 L MCHC 29.4 L RDW 19.1 H Plt Count 389 MPV 8.5 Neut % (Auto) 16.3 L Lymph % (Auto) 80.9 H [place] % (Auto) 1.7 Eos % (Auto) 0.8 Baso % (Auto) 0.3 Neut # (Auto) 8.2 H Lymph # (Auto) 40.8 H [place] # (Auto) 0.9 H Eos # (Auto) 0.4 Baso # (Auto) 0.1 Neutrophils % (Manual) Band Neutrophils % Lymphocytes % (Manual) Reactive Lymphs % Monocytes % (Manual) Platelet Estimate Hypochromasia (manual) Anisocytosis (manual) Microcytosis (manual) Tear Drop Cells Ovalocytes [place] Cells Schistocytes PT INR APTT pO2 VBG pH VBG pCO2 VBG HCO3 VBG Total CO2 VBG O2 Sat (Calc) VBG Base Excess VBG Potassium Sodium 139 Chloride 114 H Glucose Lactate FiO2 Potassium 3.6 Carbon Dioxide 16 L Anion Gap 13 BUN 11 Creatinine 1.1 Est GFR ( Amer) > 60 Est GFR (Non-Af Amer) 51 POC Glucose (mg/dL) 140 H Random Glucose 120 H Calcium 8.1 L Phosphorus 3.0 Magnesium 1.3 L Total Bilirubin 0.3 AST 31 ALT 23 Alkaline Phosphatase 107 Troponin I < 0.0120 Total Protein 6.7 Albumin 3.6 Globulin 3.1 Albumin/Globulin Ratio 1.1 Triglycerides 153 H D Cholesterol 119 LDL Cholesterol Direct 71 HDL Cholesterol 26 L Lipase Venous Blood Potassium Urine Color Urine Clarity Urine pH Ur Specific [place] Urine Protein Urine Glucose (UA) Urine Ketones Urine Blood Urine Nitrate Urine Bilirubin Urine Urobilinogen Ur Leukocyte Esterase Urine RBC (Auto) Urine Microscopic WBC Ur Squamous Epith Cells Amorphous Sediment Urine Bacteria Hyaline Casts
[2018-12-02 11:55] VITALS: BP 136/72; PULSE 102; RESP 20; TEMP 97.4; O2SAT 98
[2018-12-02] MEDS ORDERED: Insulin Lispro (humaLOG) 100 Units/ml Inj SC SCH (13:00)
== END 2018-12-02 14:17 | disposition home or self-care (01) ==
LOC: H.ER 11:35 → H.ERHOLD 17:56 → H.TEL 22:28
PROVIDERS: ADMIT Family Medicine; ATTEND Family Medicine
DX: R10.9 Unspecified abdominal pain (principal); C91.10 Chronic lymphocytic leukemia of B-cell type not having achieved remission; Z86.74 Personal history of sudden cardiac arrest; I25.10 Atherosclerotic heart disease of native coronary artery without angina pectoris; Z95.1 Presence of aortocoronary bypass graft; I10 Essential (primary) hypertension; E78.00 Pure hypercholesterolemia, unspecified; K29.70 Gastritis, unspecified, without bleeding; Z79.82 Long term (current) use of aspirin; Z79.4 Long term (current) use of insulin; E11.65 Type 2 diabetes mellitus with hyperglycemia; R19.7 Diarrhea, unspecified; Z87.891 Personal history of nicotine dependence; R07.89 Other chest pain; R19.00 Intra-abdominal and pelvic swelling, mass and lump, unspecified site; R53.1 Weakness
CPT/HCPCS: 36415; 71045; 74177; 80053; 80061; 81003; 82803; 82948; 83036; 83690; 83735; 84100; 84484; 85025; 85610; 85730; 87040; 87086; 93005; 96374; 99285; G0378; J2405; J7030; Q9966; Q9967